=== PATIENT | male | born 1990 | race Caucasian/White ===

== ENCOUNTER → 2025-02-27 | Outpatient (CLI) | payer OTHER, SELFPAY ==
--- NOTE | 2025-02-27 14:09 | NEURO ---
NCS and/or EMG Patient Report Ordering Doctor: Wilmer Noland DATE OF SERVICE: 02/27/25 Tee presents with complaints of numbness in the heels. Electrodiagnostic findings: Right peroneal motor nerve demonstrates normal distal latency and amplitude with an approximately 25% drop in conduction velocity across the fibular head. Left peroneal motor nerve demonstrates normal distal latency and amplitude with approximately 25% drop in conduction across the fibular head. Tibial motor response within normal limits bilaterally. Normal tibial and peroneal F?waves. H?reflex borderline prolonged bilaterally. Sensory responses are within normal limits. Needle EMG testing was performed the lower limbs. All muscles tested showed no evidence of denervation with normal motor unit action potentials. Electrodiagnostic impression: This is an abnormal study in the lower limbs 1. 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 There is evidence of a mild conduction block at the fibular head bilaterally. It is unclear if this is what is causing the patient's symptoms. 2. There is no electrodiagnostic evidence for peripheral polyneuropathy. 3. There is no electrodiagnostic evidence for lumbosacral radiculopathy Multi Select Codes Neurology Neurology Interp Codes: 20678-51 Musc test done w/n test comp (interp) (2) and 64269-81 Nrv cndj test 9-10 studies (interp) (2)
== END | disposition home or self-care (01) ==
PROVIDERS: Referring Provider Podiatrist Foot & Ankle Surgery; Visit Provider Podiatrist Foot & Ankle Surgery
DX: M79.2 Neuralgia and neuritis, unspecified (principal); M79.604 Pain in right leg; M79.605 Pain in left leg
CPT/HCPCS: 95886; 95913